=== PATIENT | female | born 1990 | race Two or more races ===

== ENCOUNTER 2018-12-22 21:55 | Inpatient (IN) | payer OTHER ==
[~2018-12-22] VITALS: Ht 149.9 cm; Wt 68.0 kg
[~2018-12-22 21:55] MED LIST: IRON1TAB74 PO; PNV91TAB3 PO
--- NOTE | 2018-12-22 22:55 | HP ---
Date/Time of Note Date/Time of Note DATE: 12/22/18 TIME: 22:53 OB - History Hx of Present Chief Complaint: contractions and SROM Estimated Due Date: Dec 28, 2018 : 2 Para: 1 Spontaneous : 0 Therapeutic : 0 Care: Good Care Ultrasounds: Normal mid trimester US Obstetrical Complications: None Medical Complications: None Past Family/Social History * Past Medical, Surgical, Family and Obstetric Histories reviewed from chart. GBS Status: Negative OB Admission Exam Physical Exam HEENT: WNL Heart: Rhythm Normal Lungs: Clear, Equal Abdomen: WNL Extremities: Normal Reflexes: Normal Cervical Dilatation: 4cm Effacement: 50% Station: -1 Membranes: Ruptured Amniotic Fluid: Clear Heart Rate: 120's Accelerations: Accelerations Present Decelerations: No Decelerations Varibility: Moderate OB Assessment/Plan Reason for admission: active labor Plan: Expectant Management DALLAS MCGREGOR MD Dec 22, 2018 22:55
[2018-12-22 22:59] VITALS: BP 109/70; PULSE 61; RESP 16
[2018-12-22 23:00] VITALS: Ht 149.9 cm; Wt 68.0 kg
[2018-12-22] MEDS ORDERED: OXYTOCIN 30 UNITS/LR 500 ML IV PRN (23:00)
[2018-12-22] MEDS ORDERED: LIDOCAINE 1% (MPF) 30 ML INJ INJ PRN (23:00)
[2018-12-22] MEDS ORDERED: IBUPROFEN 600 MG TAB PO PRN (23:00)
[2018-12-22] MEDS ORDERED: CARBOPROST 250 MCG INJ IM PRN (23:00)
[2018-12-22] MEDS ORDERED: MISOPROSTOL 200 MCG TAB PR PRN (23:00)
[2018-12-22] MEDS ORDERED: BUTORPHANOL 2 MG INJ IV PRN (23:00)
[2018-12-22] MEDS ORDERED: OXYTOCIN 30 UNITS/LR 500 ML IV SCH ×2 (23:00)
[2018-12-22] MEDS ORDERED: METHYLERGONOVINE 0.2 MG INJ IM PRN (23:00)
[2018-12-22] MEDS: LACTATED RINGER'S 1,000 ML IV SCH (23:10)
--- NOTE | 2018-12-22 23:12 | TRIAGE ---
OB Triage Datetime Report Generated by CPN: 12/22/2018 23:12 Datetime: 12/22/2018 23:08 Arrived By: Ambulatory Datetime: 12/22/2018 23:02 Vaginal Exam Dilatation (cms): 4.0 Effacement (%): 80 Station: -2 Membrane Status: Intact Datetime: 12/22/2018 22:28 Assessment Type: Triage Maternal Assessment Level of Consciousness: Fully Conscious DTR's/Clonus: DTRs 2+; No Clonus Headache: Denies Blurred Vision: No Respiratory Effort: Unlabored; Regular Rhythm; Equal Expansion Breath Sounds, Left: Clear and Equal Breath Sounds, Right: Clear and Equal Nausea/Vomiting: Denies RUQ Epigastric Pain: Denies Facial Edema: None Fall Risk Assessment History of Falling: (0) No Secondary Diagnosis: (0) No Ambulatory Aid: (0) Bedrest/Nurse Assist IV Therapy: (0) No Gait: (0) Normal/Bedrest/Immobile Mental Status: (0) Oriented to Own Ability Fall Score: 0 Fall Risk Score Definition: No Risk: No action required Datetime: 12/22/2018 22:24 Time of Arrival: 12/22/2018 22:05 EGA: 39.1 Arrived By: Ambulatory Arrived From: Home Chief Complaint: UC'S SINCE 1300 Movement: Present Contractions: Denies/Absent Time Contractions Began: 12/22/2018 13:00 Rupture of Membranes: Denies Vaginal Bleeding: None Vaginal Discharge: Denies Recent Sexual Intercouse: Denies Abdominal Trauma: Not Applicable Patient Complaints: Contractions Time Provider Notified: 12/22/2018 22:55 Provider Notified: DR. MCGREGOR Initial Plan: EFM, VE, ADMIT TO L_D Labor Evaluation Frequency: irregular Monitor Mode: External Quality: Mild Pattern: Normal: <= 5 Contractions in 10 Minutes Resting Tone Wilmer: Relaxed Contraction Comments: placed on toco Heart Rate FHR Baseline Rate: 135 Monitor Mode: External US
[2018-12-23] MEDS: LACTATED RINGER'S 1,000 ML IV SCH ×3 (01:18→06:14)
--- NOTE | 2018-12-23 01:37 | PREAC ---
Date/Time of Note Date/Time of Note DATE: 12/23/18 TIME: :36 Anesthesia Eval and Record Evaluation Time Pre-Procedure Interview DATE: 12/23/18 TIME: :36 Age 28 Sex female NPO: 8 hrs Preoperative diagnosis intrauterine Planned procedure labor epidural Past Medical History Past Medical History: None Surgery & Anesthesia Issues No known issue Meds Anticoagulation: No Beta Twyla within 24 hr: No Reason Beta Twyla not given: Pt. not on B-Twyla Reported Medications Iron Bis-Gly/Fa/C/B12/Ca/Succ (IRON 21/7 TABLET) 1 Each Tablet, 1 EACH PO DAILY, TAB 08/13/16 Pnv95/Ferrous Fumarate/FA ( [place]) 1 Each Tablet, 1 EACH PO DAILY, TAB 08/13/16 Current Medications Lactated Ringer's 1,000 ml @ 125 mls/hr Q8H IV Last administered on 12/23/18at 01:18; Admin Dose 125 MLS/HR; Start 12/22/18 at 22:54 Butorphanol Tartrate (Stadol) 2 mg Q2H PRN IV .PAIN; Start 12/22/18 at 23:00 Lidocaine (Xylocaine 1% (Mpf)) 30 ml ONCE PRN INJ .EPISIOTOMY; Start 12/22/18 at 23:00 Oxytocin/Lactated Ringer's 500 ml @ 500 mls/hr ONCE POST IV ; Start 12/22/18 at 23:00 Oxytocin/Lactated Ringer's 500 ml @ 125 mls/hr POST IV ; Start 12/22/18 at 23:00 Ibuprofen (Motrin) 600 mg ONCE PRN PO .PAIN 1-5; Start 12/22/18 at 23:00 Oxytocin/Lactated Ringer's 500 ml @ 0 mls/hr ONCE PRN IV .VAGINAL BLEEDING; Start 12/22/18 at 23:00 Methylergonovine Maleate (Methergine) 0.2 mg ONCE PRN IM .VAGINAL BLEEDING; Start 12/22/18 at 23:00 Carboprost Tromethamine (Hemabate) 250 mcg ONCE PRN IM .VAGINAL BLEEDING; Start 12/22/18 at 23:00 Misoprostol (Cytotec) 1,000 mcg ONCE PRN [place] .VAGINAL BLEEDING; Start 12/22/18 at 23:00 Meds reviewed: Yes Allergies Coded Allergies: No Known Allergy (Unverified , 12/22/18) Allergies Reviewed: Yes Labs/Studies Labs Reviewed: Reviewed by anesthesiologist Result Diagram: 12/22/18 2310 Laboratory Tests 12/22/18 23:10 Blood Bank Test 12/22/18 23:10 Blood Type B NEGATIVE Rh Immune Globulin Candidate NO test: N/A Pre-procedure Exam Last vitals Vital Signs Date Temp Pulse Resp B/P (MAP) Pulse Ox O2 O2 Flow FiO2 Time Delivery Rate 12/22/18 98.0 61 16 109/70 Room Air 22:59 (83) Airway: Adequate mouth opening, Adequate thyromental dist Mallampati: Mallampati II Teeth: Normal Lung: Normal Heart: Normal ASA Physical Status ASA physical status: 2 Emergency: None Planned Anesthetic Neuraxial: Epidural Planned Pain Management Epidural, Parenteral pain med Pre-operative Attestations Prior to commencing anesthesia and surgery, the patient was re-evaluated, there was verification of: *The patient's identity *The results of appropriate recent lab work and preoperative vital signs *The above evaluation not changing prior to induction *Anesthetic plan, risk benefits, alternative and complications discussed with patient/family; questions answered; patient/family understands, accepts and wishes to proceed. ARLINE ZUNIGA MD Dec 23, 2018 01:37
[2018-12-23] MEDS ORDERED: ROPIVACAINE 0.2% 100 ML ONE (01:46)
[2018-12-23] MEDS ORDERED: DIPHENHYDRAMINE 50 MG INJ IV PRN ×3 (02:00→12:00)
[2018-12-23] MEDS ORDERED: ROPIVACAINE 0.2% 100ML BAG EPI SCH (02:00)
[2018-12-23] MEDS ORDERED: NALOXONE (0.4 MG/ML) INJ IV PRN ×2 (02:00→12:00)
[2018-12-23] MEDS ORDERED: ONDANSETRON 4 MG INJ IV PRN ×3 (02:00→12:00)
[2018-12-23] MEDS ORDERED: FENTAnyl 50 MCG/ML VIAL ONE ×3 (02:49→09:08)
[2018-12-23] MEDS ORDERED: FENTAnyl 2MCG/ML-ROPIV 0.2% 100 ML BAG EPI SCH (04:00)
--- NOTE | 2018-12-23 04:37 | PAC ---
Date/Time of Note Date/Time of Note DATE: 12/23/18 TIME: 04:36 Post-Anesthesia Notes Post-Anesthesia Note Last documented vital signs Vital Signs Date Temp Pulse Resp B/P (MAP) Pulse Ox O2 O2 Flow FiO2 Time Delivery Rate 12/22/18 98.0 61 16 109/70 Room Air 22:59 (83) Activity: WNL Respiratory function: WNL Cardiovascular function: WNL Mental status: Baseline Pain reasonably controlled: Yes Hydration appropriate: Yes Nausea/Vomiting absent: Yes Comments BP: 108/62 HR: 76 RR: 16 T: 98 SaO2: 100% ARLINE ZUNIGA MD Dec 23, 2018 04:37
[2018-12-23] MEDS ORDERED: CEFAZOLIN 2 GM/50 ML (PMX) 50 ML IVPB ONE ×2 (08:15→08:30)
--- NOTE | 2018-12-23 08:38 | QN ---
Documentation Comment 28 years old 2 para 1001 with single intrauterine at 39 weeks and 2 days with LGA and arrest of dilation. She states good movement. She denies nausea, vomiting, shortness of breath, chest pain, headache, visual changes. heart rate is category 1. She has uterine contractions every 2- 3 minutes. Arrest of dilation and greater risk with increase weight compare to the general obstetric population which including but not limited to Labor abnormalities, increase risk of delivery and shoulder dystocia with risk of fracture of the clavicle, humerus and damage to the nerves of the brachial plexus, risk of morbidity for , hypoxic-ischemic encephalopathy and even discussed with patient and her . I also discussed shoulder dystocia and brachial plexus injury can occur with delivery too. [place] complications and injury (eg, low score, assisted ventilation longer than 30 minutes, increased rates of admission and prolonged admission (greater than 3 days) to a intensive care unit, increase risk of maternal hemorrhage after delivery, significant vaginal lacerations and fourth-degree lacerations. I also discussed shoulder dystocia and brachial plexus injury can occur with delivery too. Patient and her expressed understanding, all of their questions answered. She would like to have delivery. She signed the consent form. MERLIN LEW Dec 23, 2018 08:38
[2018-12-23] MEDS ORDERED: PHENYLephrine (100 MCG/ML) 10ML SYG ONE (08:43)
[2018-12-23] MEDS ORDERED: CHLOROPROCAINE 3% (MPF) 20 ML INJ ONE (08:43)
[2018-12-23] MEDS ORDERED: MAGNESIUM HYDROXIDE 30ML CUP PO PRN (09:00)
[2018-12-23] MEDS ORDERED: morphine SULFATE/PF (10 MG/10 ML) INJ ONE (09:05)
[2018-12-23] MEDS ORDERED: HYDROmorphONE 2 MG/ML SYG ONE (09:42)
--- NOTE | 2018-12-23 11:55 | PAC ---
Date/Time of Note Date/Time of Note DATE: 12/23/18 TIME: 11:55 Post-Anesthesia Notes Post-Anesthesia Note Last documented vital signs Vital Signs Date Temp Pulse Resp B/P (MAP) Pulse Ox O2 O2 Flow FiO2 Time Delivery Rate 12/22/18 98.0 61 16 109/70 Room Air 22:59 (83) Activity: WNL Respiratory function: WNL Cardiovascular function: WNL Mental status: Baseline Pain reasonably controlled: Yes Hydration appropriate: Yes Nausea/Vomiting absent: Yes SHEN BHAT Dec 23, 2018 11:55
[2018-12-23] MEDS ORDERED: KETOROLAC 30 MG INJ IV PRN (12:00)
[2018-12-23] MEDS ORDERED: FENTAnyl 50 MCG/ML VIAL IV PRN ×3 (12:00)
[2018-12-23] MEDS ORDERED: HYDROmorphONE 1 MG/5 ML IV SYRINGE IV PRN ×3 (12:00)
[2018-12-23] MEDS ORDERED: HYDROmorphONE 0.5 MG/0.5 ML SYG IV PRN ×2 (12:00)
[2018-12-23] MEDS ORDERED: ALBUTEROL 0.083% (NEB) 2.5 MG/3 ML AMP HHN PRN (12:00)
[2018-12-23] MEDS ORDERED: METOCLOPRAMIDE 10 MG INJ IV PRN (12:00)
[2018-12-23 12:35] VITALS: BP 120/78; PULSE 62; RESP 16
[2018-12-23] MEDS ORDERED: OXYTOCIN 30 UNITS/LR 500 ML IV SCH (12:40)
[2018-12-23] MEDS ORDERED: METHYLERGONOVINE 0.2 MG TAB PO PRN (13:00)
[2018-12-23] MEDS ORDERED: METHYLERGONOVINE 0.2 MG INJ IM PRN (13:00)
[2018-12-23] MEDS ORDERED: LANOLIN HPA 1 PKT TOP PRN (13:00)
[2018-12-23] MEDS ORDERED: OXYTOCIN 30 UNITS/LR 500 ML IV PRN (13:00)
[2018-12-23] MEDS ORDERED: MISOPROSTOL 200 MCG TAB PR PRN (13:00)
[2018-12-23] MEDS ORDERED: CARBOPROST 250 MCG INJ IM PRN (13:00)
[2018-12-23 13:05] VITALS: BP 104/76; PULSE 85; RESP 16
[2018-12-23 14:05] VITALS: BP 128/81; PULSE 85; RESP 16
[2018-12-23 15:45] VITALS: BP 102/70; PULSE 84; RESP 16
[2018-12-23] MEDS: DEXTROSE 5%-LR 1,000 ML IV SCH ×2 (15:47→20:40)
[2018-12-23 20:25] VITALS: BP 103/58; PULSE 93; RESP 19
--- NOTE | 2018-12-23 20:30 | OPR ---
Operative Report Planned Procedure Procedure date Dec 23, 2018 Procedure(s) Primary low transverse delivery Performed by see signature line Suction Worker: DALLAS MCGREGOR MD Anesthesiologist: SHEN BHAT Pre-procedure diagnosis 28 years old 2 para 1001 with single intrauterine at 39 weeks and 2 days with LGA and arrest of dilation. [id number] Anesthesia Type: [id number] spinal Post-Procedure Post-procedure diagnosis 28 years old 2 para 1001 with single intrauterine at 39 weeks and 2 days with LGA and arrest of dilation. Findings 1. Normal uterus, fallopian tubes and ovaries 2. Viable female in cephalic presentation. 9 at one minute and 9 in 5 minutes. Weight: 3980 g - 8 pound 12 ounces. Time of delivery: 09:10 3. Placenta with three vessel cord 4. Amniotic fluid - Clear Estimated Blood Loss: 600 - 700 mls Specimen(s) none Grafts/Implant(s) none Complication(s) none Pt Condition post procedure: stable Disposition: PACU Procedure Description INDICATION AND HISTORY: A 28 years old 2 para 1001 with single intrauterine at 39 weeks and 2 days with LGA and arrest of dilation. The risk of delivery including but not limited to bleeding, infection, injury to other organs (bowel, bladder, ureter, vessels, nerves), injury to fetus, blood transfusion, blood transfusion related infection, risk of anesthesia, adhesion, needs for future , removal of uterus or any other indicated surgery was discussed with the patient and her family. She expressed understanding. All of her questions were answered. She signed the informed consent. DESCRIPTION OF OPERATION: The patient was taken to the operating room, where she was identified and the procedure was verified. The patient received two gram of Ancef 30 minutes prior to surgery. However spinal anesthesia was placed. The patient placed in the dorsal supine position with a left tilt. The heart rate was 130 bpm. The patient was then prepped and draped in the normal sterile fashion. A Pfannenstiel skin incision was made and carried down to the fascia with knife. The fascia was incised in the midline and the fascial incision was carried laterally with knife. The superior portion of the fascial incision was then gr asped with King clamps and tented up and dissected off the underlying rectus muscle with sharp dissection. The lower portion of the fascial incision was then made in a similar fashion. The rectus muscle was and the peritoneum was entered. The peritoneal incision was then stretched and an Wily retractor was inserted. Then, an incision was made in the lower uterine s egment in a transverse fashion with a knife and extended bluntly. The was delivered atraumatically in cephalic presentation with the above findings. The umbilical cord was clamped and cut. The neonatology resuscitation team was present and the baby was handed to them. A cord blood sample was obtained for further evaluation. The placenta and membrane, which appeared normal were Removed. The uterus was exteriorized and cleared of all clot and debris. The uterus was then closed in a two layer fashion with 0-Monocryl. At the time of closure, hemostasis was noted. The gutters were irrigated. The peritoneum was reapproximated with 3-0 Vicryl. The muscle was reapproximated with 3-0 Vicryl. The fascia was approximated with 0-Vicryl in a running fashion. The subcutaneous tissue was re approximated with 3-0 vicryl. The skin was closed with 4-0 Monocryl. All instruments, sponges and needle counts were correct x3. The patient tolerated the procedure well. She transferred to the recovery room in stable condition. MERLIN LEW Dec 23, 2018 20:30
[2018-12-23] MEDS: SENNA/DOCUSATE NA (8.6MG/50MG) TAB PO SCH (20:35)
[2018-12-23] MEDS: KETOROLAC 30 MG INJ IV PRN (22:38)
[2018-12-24 00:10] VITALS: BP 109/60; PULSE 89; RESP 17
[2018-12-24 03:38] VITALS: BP 104/62; PULSE 85; RESP 18
[2018-12-24] MEDS: DEXTROSE 5%-LR 1,000 ML IV SCH (04:12)
[2018-12-24] MEDS: KETOROLAC 30 MG INJ IV PRN (04:54)
--- NOTE | 2018-12-24 07:10 | QN ---
Documentation Comment s/p c/s Subjective: no complaint Objective: Afebrile, VSS NAD A&O Abdomen: soft, appropriate tender Incision: covered mild lochia Extremity: 1+ edema bilaterally Assessment: S/p C/S. POD # 1 Recovering Well Plan: current care FABRICIO MARTIN MD Dec 24, 2018 07:10
[2018-12-24 08:00] VITALS: BP 98/57; PULSE 97; RESP 18
[2018-12-24] MEDS: SENNA/DOCUSATE NA (8.6MG/50MG) TAB PO SCH ×2 (09:11→21:22)
[2018-12-24] MEDS: HYDROCODONE/APAP (5/325) TAB NGT PRN ×2 (10:57→17:01)
[2018-12-24] MEDS ORDERED: DIPHTH/TET/ACEL PERTUSS (ADULT) 0.5 ML VIAL IM* ONE (11:00)
[2018-12-24] MEDS: IBUPROFEN 800 MG TAB PO SCH ×2 (13:42→21:22)
[2018-12-24] MEDS: FERROUS SULFATE (EC) 325 MG TAB PO SCH ×2 (13:42→21:22)
[2018-12-24] MEDS: HYDROCODONE/APAP (5/325) TAB GTB SCH ×2 (14:00→21:23)
[2018-12-24 15:56] VITALS: BP 108/58; PULSE 77; RESP 20
[2018-12-24 20:05] VITALS: BP 110/52; PULSE 61; RESP 19
[2018-12-25 04:28] VITALS: BP 96/52; PULSE 98; RESP 18
[2018-12-25] MEDS: HYDROCODONE/APAP (5/325) TAB GTB SCH ×2 (05:47→14:33)
[2018-12-25] MEDS: IBUPROFEN 800 MG TAB PO SCH ×2 (05:47→14:34)
[2018-12-25 08:10] VITALS: BP 101/53; PULSE 68; RESP 14
--- NOTE | 2018-12-25 09:20 | CONS ---
Consultation Date/Type/Reason Admit Date/Time Dec 22, 2018 at 22:45 Initial Consult Date 12/24/18 Type of Consult anesthesiology Reason for Consultation follow up Date/Time of Note DATE: 12/25/18 TIME: 24 HR Interval Summary Free Text/Dictation Pt seen and examined on 12/24/18 was POD#1 s/p c/s. Pt received duramorph injection for post-op pain control. Pt had no N/V/ROCHA/Numbness in extremities. Will f/u. Exam/Review of Systems Exam Vitals Vital Signs Date Temp Pulse Resp B/P (MAP) Pulse Ox O2 O2 Flow FiO2 Time Delivery Rate 12/25/18 97.9 68 14 101/53 Room Air 08:10 (69) 12/24/18 97 03:38 Intake and Output 12/24/18 12/24/18 12/25/18 1515:00 23:00 07:00 IntakeIntake Total 1450 ml OutputOutput Total 1000 ml BalanceBalance 450 ml Results Result Diagram: 12/24/18 0738 Medications Medication Current Medications Magnesium Hydroxide (Milk Of Mag) 30 ml DAILY PRN PO CONSTIPATION Last administered on 12/24/18at 21:23; Admin Dose 30 ML; Start 12/23/18 at 09:00 Methylergonovine Maleate (Methergine) 0.2 mg Q6H PRN PO .VAGINAL BLEEDING; Start 12/23/18 at 13:00 Simethicone (Mylicon) 160 mg Q8H PRN PO .GAS Last administered on 12/24/18at 17:40; Admin Dose 160 MG; Start 12/23/18 at 13:00 Senna/Docusate Sodium (Senokot-S) 1 tab BID PO Last administered on 12/24/18at 21:22; Admin Dose 1 TAB; Start 12/23/18 at 21:00 Lanolin (Lanolin Hpa) 1 applic BEDSIDE MEDICATION PRN TOP .NIPPLES Last administered on 12/23/18at 22:38; Admin Dose 1 APPLIC; Start 12/23/18 at 13:00 Measles/Mumps/ Rubella Vaccine Live (Mmr Ii Vaccine) 0.5 ml ONCE ONCE SC* ; Start 12/26/18 at 09:00; Stop 12/26/18 at 09:01 Oxytocin/Lactated Ringer's 500 ml @ 0 mls/hr ONCE PRN IV .VAGINAL BLEEDING; Start 12/23/18 at 13:00 Methylergonovine Maleate (Methergine) 0.2 mg ONCE PRN IM .VAGINAL BLEEDING; Start 12/23/18 at 13:00 Carboprost Tromethamine (Hemabate) 250 mcg ONCE PRN IM .VAGINAL BLEEDING; Start 12/23/18 at 13:00 Misoprostol (Cytotec) 1,000 mcg ONCE PRN [place] .VAGINAL BLEEDING; Start 12/23/18 at 13:00 Ibuprofen (Motrin) 800 mg Q8 PO Last administered on 12/25/18 05:47; Admin Dose 800 MG; Start 12/24/18 at 14:00 Acetaminophen/ Hydrocodone Bitart ([place] (5/325)) 1 tab Q4H PRN NGT PAIN LEVEL 7-10 Last administered on 12/24/18 17:01; Admin Dose 1 TAB; Start 12/24/18 at 11:00 Acetaminophen/ Hydrocodone Bitart ([place] (5/325)) 1 tab Q8 GTB Last administered on 12/25/18 05:47; Admin Dose 1 TAB; Start 12/24/18 at 14:00 Ferrous Sulfate (Ferrous Sulfate (Ec)) 325 mg TID PO Last administered on 12/24/18 21:22; Admin Dose 325 MG; Start 12/24/18 at 13:00 SHEN BHAT Dec 25, 2018 09:20
[2018-12-25] MEDS: SENNA/DOCUSATE NA (8.6MG/50MG) TAB PO SCH (09:59)
[2018-12-25] MEDS: FERROUS SULFATE (EC) 325 MG TAB PO SCH ×2 (09:59→12:34)
--- NOTE | 2018-12-25 15:29 | DS ---
Date/Time of Note Date/Time of Note DATE: 12/25/18 TIME: 15:28 Obstetrical Discharge Record Final Diagnosis Final Diagnosis: Term delivered Vaginal Delivery Obstetrical Delivery: Spontaneous Section Section: Primary Primary Indication macrosomia Complications Augmentation: No Induction: No Rupture of Membranes: No Condition on Discharge Physical Assessment Voiding: Yes Bowel Movement: Yes Breast: Soft, non-tender, Filling Fundus: Firm Abdomen and Incision: soft, appropriate tenderness Episiotomy: NA Calf Tenderness: No Patient Condition: Good FABRICIO MARTIN MD Dec 25, 2018 15:29
[2018-12-25 20:00] VITALS: BP 103/71; PULSE 76; RESP 18
[2018-12-26] MEDS: HYDROCODONE/APAP (5/325) TAB GTB SCH ×2 (00:02→05:32)
[2018-12-26] MEDS: SENNA/DOCUSATE NA (8.6MG/50MG) TAB PO SCH ×2 (00:02→09:00)
[2018-12-26] MEDS: FERROUS SULFATE (EC) 325 MG TAB PO SCH ×3 (00:02→13:00)
[2018-12-26] MEDS: IBUPROFEN 800 MG TAB PO SCH ×2 (00:02→05:32)
[2018-12-26 04:00] VITALS: BP 105/68; PULSE 61; RESP 20
[2018-12-26] MEDS ORDERED: METHYLERGONOVINE 0.2 MG INJ ONE (07:00)
[2018-12-26] MEDS ORDERED: CARBOPROST 250 MCG INJ ONE (07:00)
[2018-12-26 08:00] VITALS: BP 100/56; PULSE 61
[2018-12-26] MEDS: HYDROCODONE/APAP (5/325) TAB NGT PRN (08:50)
[2018-12-26] MEDS ORDERED: DIPHTH/TET/ACEL PERTUSS (ADULT) 0.5 ML VIAL IM* ONE (09:00)
[2018-12-26] MEDS ORDERED: MEASLES,MUMPS,RUBELLA VACCINE INJ SC* ONE (09:00)
== END 2018-12-26 13:15 | disposition home or self-care (01) | DRG 788 ==
LOC: OBT 21:55 → L-D 21:57 → OBT 22:45 → L-D 22:45 → PP1 12-23 12:38
PROVIDERS: ADMIT Specialist; ATTEND Specialist
PROC: 10D00Z1 Extraction of Products of Conception, Low, Open Approach (ICD-10-PCS; principal; 2018-12-23 08:30)
DX: O62.0 Primary inadequate contractions (principal); O36.63X0 Maternal care for excessive fetal growth, third trimester, not applicable or unspecified; Z3A.39 39 weeks gestation of pregnancy; Z37.0 Single live birth
CPT/HCPCS: 62319; 85025; 85610; 85730; 86592; 86850; 86870; 86885; 86900; 86901; 87340; 99464; J2400; G0463; J0690; J1170; J1885; J2210; J2274; J2370; J2405; J2590; J2790; J2795; J3010; J7120; J7121